=== PATIENT | female | born 1990 | race Caucasian/White ===

== ENCOUNTER 2024-06-08 08:39 | Emergency (ER) | payer OTHER ==
--- NOTE | 2024-06-08 08:47 | ERPHSYRPT ---
- History of Present Illness Time Seen by Provider: 06/08/24 08:47 Source: patient Exam Limitations: no limitations Physician History: 34-year-old female presents to our ED for evaluation of lower abdominal pain. Pain started abruptly last night. Pain described as a pressure sensation that is across her lower abdomen but somewhat more on the right. Pain worse when she stands. Patient has no pain at all when she lays flat. Patient declined pain medication. No trauma no fever. Patient reports that she has had a hysterectomy. However retains her ovaries. Patient denies ever experiencing similar symptoms. Patient otherwise feels well. No fever no nausea no vomiting no vaginal discharge no rash patient otherwise feels well and voices no other complaints or concerns at this time. Portions of this note were created with voice recognition technology. There may be grammatical, spelling, punctuation or sound alike errors Timing/Duration: yesterday Severity: moderate Modifying Factors: Improves With: nothing Associated Symptoms: denies symptoms Allergies/Adverse Reactions: codeine Adverse Reaction (Verified 06/08/24 08:52) - Review of Systems Constitutional: No Symptoms, No Fever, No Chills Eyes: No Symptoms Ears, Nose, & Throat: No Symptoms Respiratory: No Symptoms, No Cough, No Dyspnea Cardiac: No Symptoms, No Chest Pain, No Edema, No Syncope Abdominal/Gastrointestinal: No Symptoms, No Abdominal Pain, No Nausea, No Vomiting, No Diarrhea Genitourinary Symptoms: No Symptoms, No Dysuria Musculoskeletal: No Symptoms, No Back Pain, No Neck Pain Skin: No Symptoms, No Rash Neurological: No Symptoms, No Dizziness, No Focal Weakness, No Sensory Changes Psychological: No Symptoms Endocrine: No Symptoms Hematologic/Lymphatic: No Symptoms Immunological/Allergic: No Symptoms All Other Systems: Reviewed and Negative - Nursing Vital Signs Nursing Vital Signs: Initial Vital Signs Temperature 98.1 F 06/08/24 08:53 Pulse Rate 61 06/08/24 08:53 Respiratory Rate 18 06/08/24 08:53 Blood Pressure 123/82 06/08/24 08:53 O2 Sat by Pulse Oximetry 96 06/08/24 08:53 Pain Scale Pain Intensity 3 - Physical Exam General Appearance: no apparent distress, alert Eye Exam: PERRL/EOMI, eyes nml inspection Ears, Nose, Throat Exam: normal ENT inspection, TMs normal, pharynx normal, moist mucous membranes Neck Exam: normal inspection, full range of motion Respiratory Exam: normal breath sounds, lungs clear, airway intact, No respiratory distress Cardiovascular Exam: regular rate/rhythm, normal heart sounds, normal peripheral pulses Gastrointestinal/Abdomen Exam: soft, normal bowel sounds, No tenderness, No mass Back Exam: normal inspection, normal range of motion, No CVA tenderness, No vertebral tenderness Extremity Exam: normal inspection, normal range of motion, pelvis stable Neurologic Exam: alert, oriented x 3, cooperative, normal mood/affect, sensation nml, No motor deficits Skin Exam: normal color, warm, dry, No rash Lymphatic Exam: No adenopathy SpO2 Interpretation: normal SpO2: 96 O2 Delivery: Room Air - Course Nursing assessment & vital signs reviewed: Yes - CT Exams Abdomen/Pelvis CT Interpretation: Tele-radiologist Report (Periumbilical hernia. Diffuse fecal stasis. Otherwise no acute findings L3-4 disc bulge) Ordered Tests: Active Orders 24 hr Category Date Time Status IV Insertion STAT Care 06/08/24 09:15 Active ABDOMEN AND PELVIS W/0 CONTRAS [CT] Stat Exams 06/08/24 09:15 Completed CBC W DIFF Stat Lab 06/08/24 09:18 Completed CMP Stat Lab 06/08/24 09:18 Completed TROPONIN Q4H Lab 06/08/24 09:18 Completed TROPONIN Q4H Lab 06/08/24 13:15 Ordered TROPONIN Q4H Lab 06/08/24 17:15 Ordered UA W/RFX UR CULTURE Stat Lab 06/08/24 09:19 Completed Medication Summary Generic Name Dose Route Start Last Admin Trade Name Freq PRN Reason Stop Dose Admin Sodium Chloride 1,000 mls @ 100 mls/hr 06/08/24 09:15 06/08/24 09:44 Sodium Chloride 0.9% 1000 Ml IV 07/08/24 09:14 100 mls/hr .Q10H ELO Administration Discontinued Medications Generic Name Dose Route Start Last Admin Trade Name Freq PRN Reason Stop Dose Admin Ceftriaxone Sodium 1 gm in 100 mls @ 200 mls/hr 06/08/24 10:18 06/08/24 10:31 Rocephin 1 Gm / 100 Ml Nacl IV 06/08/24 10:47 200 ml/hr STAT ONE 200 mls/hr Administration Ceftriaxone Sodium Confirm 06/08/24 10:28 Rocephin 1 Gm / 100 Ml Nacl Administered 06/08/24 10:29 Dose 1 gm in 100 mls @ ud IV .STK-MED ONE Lab/Rad Data: Laboratory Result Diagrams 06/08/24 09:18 06/08/24 09:18 Laboratory Results 06/08/24 06/08/24 06/08/24 Range/Units 09:19 09:18 09:18 WBC 7.9 (3.98-10.04) x10^3/uL RBC 4.30 (3.93-5.22) x10^6/uL Hgb 11.9 (11.2-15.7) g/dL Hct 36.7 (34.1-44.9) % MCV 85.3 (79.4-94.8) fL MCH 27.7 (25.6-32.2) pg MCHC 32.4 (32.2-35.5) g/dL RDW 13.1 (11.7-14.4) % Plt Count 274 (182-369) x10^3/uL MPV 10.4 (9.4-12.3) fL Gran % 57.0 (34.0-71.1) % Immature Gran % (Auto) 0.4 (0.001-0.429) % Nucleat RBC Rel Count 0.0 (0.00-0.2) % Eos # (Auto) 0.23 (0.04-0.36) x10^3/uL Immature Gran # (Auto) 0.03 (0.001-0.031) x10^3u/L Absolute Lymphs (auto) 2.59 (1.18-3.74) x10^3/uL Absolute Monos (auto) 0.50 (0.24-0.86) x10^3/uL Absolute Nucleated RBC 0.00 (0.00-0.012) x10^3u/L Lymphocytes % 32.8 (19.3-51.7) % Monocytes % 6.3 (4.7-12.5) % Eosinophils % 2.9 (0.7-5.8) % Basophils % 0.6 (0.1-1.2) % Absolute Granulocytes 4.50 (1.56-6.13) x10^3/uL Basophils # 0.05 (0.01-0.08) x10^3/uL Sodium 140 (135-145) mmol/L Potassium 4.0 (3.5-5.1) mmol/L Chloride 104 (98-107) mmol/L Carbon Dioxide 27 (22-30) mmol/L Anion Gap 13.2 (5-15) MEQ/L BUN 12 (7-17) mg/dL Creatinine 0.67 (0.52-1.04) mg/dL Estimated GFR 116.8 ML/MIN Glucose 95 (74-106) mg/dL Calcium 9.1 (8.4-10.2) mg/dL Total Bilirubin 0.40 (0.2-1.3) mg/dL AST 29 (14-36) U/L ALT 27 (0-35) U/L Alkaline Phosphatase 86 (38-126) U/L Troponin I < 0.012 (0.000-0.033) ng/mL Serum Total Protein 7.1 (6.3-8.2) g/dL Albumin 4.2 (3.5-5.0) g/dL Urine Color Dark Yellow A (Yellow) Urine Appearance Clear (Clear) Urine pH 6.0 (4.6-8.0) Ur Specific [place] 1.010 (1.005-1.030) Urine Protein Negative (Negative) Urine Glucose (UA) Negative (Negative) mg/dL Urine Ketones Negative (Negative) Urine Blood Negative (Negative) Urine Nitrite Positive A (Negative) Urine Bilirubin Negative (Negative) Urine Urobilinogen 1.0 A (0.2) mg/dL Ur Leukocyte Esterase Negative (Negative) U Hyaline Cast (Auto) NONE SEEN (0-2) /LPF Urine Microscopic RBC 0-2 (0-5) /HPF Urine Microscopic WBC 0-2 (0-5) /HPF Ur Epithelial Cells None Seen (None Seen) /HPF Urine Bacteria Rare A (None Seen) /HPF Urine Culture Reflexed NO (NO) - Progress Progress: improved Progress Note: 34-year-old female presents to our ED for evaluation of lower abdominal pain. Workup reveals urinary tract infection. CT abdomen pelvis reveals constipation,'s fatty containing umbilical hernia. L3-L4 disc bulge. Patient declined pain medication. No indication for further workup. Patient received a dose of Rocephin in our ED for the UTI. A prescription for Keflex forwarded to patient's pharmacy. Patient agrees to follow-up with primary care doctor within 48 hours for reevaluation. She voices no other complaints or concerns at this time. Portions of this note were created with voice recognition technology. There may be grammatical, spelling, punctuation or sound alike errors Complexity of problem addressed is moderate acute complicated no critical care time. Complexity of data reviewed and analyzed is moderate. Test ordered chest reviewed results analyzed and correlated clinically with history and physical exam. Risk of complication and or risk of morbidity/mortality of patient management is low. Vital stable. Time spent to discharge patient is approximately 10 minutes. Plan of care established for shared decision making. No social determinants of health present to impede follow-up. Portions of this note were created with voice recognition technology. There may be grammatical, spelling, punctuation or sound alike errors 06/08/24 11:09 Counseled pt/family regarding: lab results, diagnosis, need for follow-up, rad results - Departure Departure Disposition: Home Clinical Impression: Constipation, Urinary tract infection, Fatty umbilical hernia, Bulging disc Condition: Stable Critical Care Time: No Referrals: DOCTOR,NO FAMILY [Primary Care Provider] - Follow up/PCP as directed SARA SANDHU DO [ACTIVE STAFF] - Follow up/PCP as directed Instructions: Urinary tract infections in adults Additional Instructions: Discharge/Care Plan PALMA COBB BALA was seen on 06/08/24 in the Emergency Room. The patient was counseled regarding Diagnosis,Lab results, Imaging studies, need for follow up and when to return to the Emergency Room. Prescriptions given: Discharge Note I have spoken with the patient and/or caregivers. I have explained the patient's condition, diagnosis and treatment plan based on the information available to me at this time. I have answered the patient's and/or caregiver's questions and addressed any concerns. The patient and/or caregivers have as good understanding of the patient's diagnosis, condition and treatment plan as can be expected at this point. The vital signs have been stable. The patient's condition is stable and appropriate for discharge from the emergency department. The patient will pursue further outpatient evaluation with the primary care physician or other designated or consulting physician as outlined in the discharge instructions. The patient and/or caregivers are agreeable to this plan of care and follow-up instructions have been explained in detail. The patient and/or caregivers have received these instruction. The patient/and or caregivers are aware that any significant change in condition or worsening of symptoms should prompt an immediate return to this or the closest emergency department or call 911. Prescriptions: Cephalexin Mh 500 mg [Keflex 500 mg] 500 mg PO TID #21 cap
[2024-06-08 09:00] VITALS: TEMP 98.1
[2024-06-08 09:21] LABS: BASOPHIL % 0.6 % (0.1-1.2); Basophil (Absolute #) 0.05 x10^3/uL (0.01-0.08); Eosinophil % 2.9 % (0.7-5.8); Eosinophil (Absolute #) 0.23 x10^3/uL (0.04-0.36); Hematocrit 36.7 % (34.1-44.9); Hemoglobin 11.9 g/dL (11.2-15.7); IMMATURE GRAN # 0.03 x10^3u/L (0.001-0.031); IMMATURE GRAN % 0.4 % (0.001-0.429); Lymphocyte (Absolute #) 2.59 x10^3/uL (1.18-3.74); Lymphocytes % 32.8 % (19.3-51.7); Mean Cell Volume 85.3 fL (79.4-94.8); Mean Corpuscular Hemoglobin 27.7 pg (25.6-32.2); Mean Corpuscular Hgb Concent. 32.4 g/dL (32.2-35.5); Mean Platelet Volume 10.4 fL (9.4-12.3); Monocytes % 6.3 % (4.7-12.5); Platelet Count 274 x10^3/uL (182-369); Red Cell Distribution Width 13.1 % (11.7-14.4); White Blood Count 7.9 x10^3/uL (3.98-10.04)
[2024-06-08 09:32] LABS: Appearance Clear (Clear); Bacteria Rare /HPF (None Seen); Bilirubin Negative (Negative); Blood Negative (Negative); Epithelial Cells None Seen /HPF (None Seen); Glucose, Urine Negative (Negative); Hyaline Casts NONE SEEN /LPF (0-2); Ketones Negative (Negative); Leukocyte Esterase Negative (Negative); Nitrite Positive (Negative); Protein,Urine Dip Negative (Negative); RBC 0-2 /HPF (0-5); WBC 0-2 /HPF (0-5)
[2024-06-08 09:38] LABS: ALBUMIN 4.2 g/dL (3.5-5.0); ALKALINE PHOSPHATASE 86 U/L (38-126); ANION GAP 13.2 MEQ/L (5-15); BLOOD UREA NITROGEN 12 mg/dL (7-17); CHLORIDE 104 mmol/L (98-107); Calcium 9.1 mg/dL (8.4-10.2); Carbon Dioxide 27 mmol/L (22-30); Creatinine 1 0.67 mg/dL (0.52-1.04); EST GLOMERULAR FILTRATION RATE 116.8 ML/MIN; Glucose 95 mg/dL (74-106); SGOT/AST 29 U/L (14-36); SGPT/ALT 27 U/L (0-35); SODIUM 140 mmol/L (135-145); TROPONIN < 0.012 ng/mL (0.000-0.033); Total Protein 7.1 g/dL (6.3-8.2)
[2024-06-08] MEDS ORDERED: Sodium Chloride 0.9% 1000 ML 1,000 ML ONE (09:42)
[2024-06-08] MEDS: Sodium Chloride 0.9% 1000 ML 1,000 ML IV SCH (09:44)
[2024-06-08] MEDS ORDERED: ROCEPHIN 1 GM / 100 ML NaCl 1 GM/100 ML IVPB IV ONE (10:28)
[2024-06-08] MEDS: ROCEPHIN 1 GM / 100 ML NaCl 1 GM/100 ML IVPB IV ONE (10:31)
--- NOTE | 2024-06-08 10:51 | XRAY ---
Indication: Positional pain. Multiple contiguous axial images obtained through the abdomen and pelvis without contrast. Comparison: None Lung bases clear. Heart is not enlarged. Noncontrasted stomach and bowel loops appear nonobstructed with normal appendix. Mild diffuse fecal debris. Previous hysterectomy. No free fluid/air. Remaining liver, gallbladder, pancreas, spleen, adrenal glands, kidneys, ureters, bladder, and aorta are unremarkable for noncontrast exam. Osseous structures intact with mild L3-L4 broad-based degenerative disc bulge with vacuum disc phenomena. Small fatty umbilical hernia. Impression: Mild diffuse fecal stasis, mild L3-L4 degenerative disc disease, and small fatty umbilical hernia. Remaining CT abdomen/pelvis without contrast exam is negative.
[2024-06-08 11:06] VITALS: BP 141/81; PULSE 75; RESP 11
[2024-06-08 11:11] VITALS: O2SAT 96
== END 2024-06-08 11:34 | disposition home or self-care (01) ==
LOC: ED 08:39
DX: N39.0 Urinary tract infection, site not specified (principal); K59.00 Constipation, unspecified; K42.9 Umbilical hernia without obstruction or gangrene; M51.369 Other intervertebral disc degeneration, lumbar region without mention of lumbar back pain or lower extremity pain; R10.30 Lower abdominal pain, unspecified; Z79.899 Other long term (current) drug therapy
CPT/HCPCS: 36415; 74176; 80053; 81001; 84484; 85025; 96374; 99284; J0696

== ENCOUNTER 2024-06-13 10:20 | Emergency (ER) | payer OTHER ==
[2024-06-13 10:30] VITALS: TEMP 98.4
[2024-06-13] MEDS ORDERED: PROTONIX 40 MG IV IV ONE (11:00)
[2024-06-13] MEDS ORDERED: Pepcid 20 MG VIAL IV ONE (11:00)
[2024-06-13] MEDS ORDERED: Sodium Chloride 0.9% 1000 ML 1,000 ML ONE (11:00)
[2024-06-13] MEDS ORDERED: Zofran 4 MG/2 ML VIAL ONE (11:00)
[2024-06-13] MEDS: PROTONIX 40 MG IV IV ONE (11:01)
[2024-06-13] MEDS: Sodium Chloride 0.9% 1000 ML 1,000 ML IV STA (11:02)
[2024-06-13] MEDS: Zofran 4 MG/2 ML VIAL IV ONE (11:02)
[2024-06-13] MEDS: Pepcid 20 MG VIAL IV ONE (11:02)
[2024-06-13 11:30] LABS: Absolute Neutrophil Ct (ANC) 4.92 x10^3/uL (1.56-6.13); BASOPHIL % 0.6 % (0.1-1.2); Basophil (Absolute #) 0.04 x10^3/uL (0.01-0.08); Eosinophil % 3.6 % (0.7-5.8); Eosinophil (Absolute #) 0.26 x10^3/uL (0.04-0.36); Hemoglobin 12.7 g/dL (11.2-15.7); IMMATURE GRAN # 0.02 x10^3u/L (0.001-0.031); IMMATURE GRAN % 0.3 % (0.001-0.429); Lymphocytes % 19.6 % (19.3-51.7); Mean Cell Volume 83.9 fL (79.4-94.8); Mean Corpuscular Hemoglobin 27.3 pg (25.6-32.2); Mean Corpuscular Hgb Concent. 32.6 g/dL (32.2-35.5); Mean Platelet Volume 10.5 fL (9.4-12.3); Monocyte (Absolute #) 0.49 x10^3/uL (0.24-0.86); Monocytes % 6.9 % (4.7-12.5); Platelet Count 273 x10^3/uL (182-369); Red Blood Count 4.65 x10^6/uL (3.93-5.22); Red Cell Distribution Width 13.2 % (11.7-14.4); White Blood Count 7.1 x10^3/uL (3.98-10.04)
[2024-06-13 11:45] LABS: ALBUMIN 4.2 g/dL (3.5-5.0); ANION GAP 16.6 MEQ/L (5-15); BILIRUBIN,TOTAL 0.5 mg/dL (0.2-1.3); Calcium 9.1 mg/dL (8.4-10.2); Creatinine 1 0.67 mg/dL (0.52-1.04); EST GLOMERULAR FILTRATION RATE 116.8 ML/MIN; Potassium 3.6 mmol/L (3.5-5.1); Total Protein 7.2 g/dL (6.3-8.2)
--- NOTE | 2024-06-13 11:52 | ERPHSYRPT ---
- History of Present Illness Time Seen by Provider: 06/13/24 11:49 Historian: patient, family Exam Limitations: no limitations Patient Subjective Stated Complaint: C/O abdominal pain since 06/07/24. Indicates N/V and diarrhea started on , 06/11/24 Triage Nursing Assessment: Patient ambulated back to ER wearing a mask. She is alert and oriented. No SOB. No cough. Skin is moist; diaphoretic. Warm to touch. ONTIVEROS WNL. Physician History: Patient is 34-year-old female without any significant past medical history was in the emergency room with abdominal pain and urinary frequency and dysuria on June 07, 2024. She was treated for urinary tract infection was started on cephalexin. Patient CAT scan of abdomen and pelvis was negative for obstruction or any other kidney stone or other pathology. Patient blood test were also unremarkable. Patient was started on Keflex and Zofran and was sent home. By next 2 days patient started having a nausea vomiting and diarrhea. Patient still has some burning urination. Patient denies any fever or chills. Patient feels like she is dehydrated because she could not keep anything down. Timing/Duration: day(s) (three days) Activities at Onset: none Abdominal Pain Onset Location: generalized abdomen Pain Radiation: no radiation Modifying Factors: Improves With: nothing Associated Symptoms: diarrhea, loss of appetite, nausea, vomiting Previous symptoms: no prior history Allergies/Adverse Reactions: codeine Adverse Reaction (Verified 06/13/24 10:28) Home Medications: Ondansetron [Ondansetron Odt ] 4 mg PO Q6H PRN 06/13/24 [History] Hx Tetanus, Diphtheria Vaccination/Date Given: Yes Hx Influenza Vaccination/Date Given: Yes Hx Pneumococcal Vaccination/Date Given: No Immunizations Up to Date: Yes Travel Risk - International Travel Have you traveled outside of the country in past 3 weeks: No - Emerging Infectious Disease Are you exhibiting symptoms associated with any current EIDs: Yes Symptoms: Abdominal Pain, Diarrhea, Fever, Vomitting - Review of Systems Constitutional: No Fever, No Chills Eyes: No Symptoms Ears, Nose, & Throat: No Symptoms Respiratory: No Cough, No Dyspnea Cardiac: No Chest Pain, No Edema, No Syncope Abdominal/Gastrointestinal: Abdominal Pain, Nausea, Vomiting, Diarrhea Genitourinary Symptoms: No Dysuria Musculoskeletal: No Back Pain, No Neck Pain Skin: No Rash Neurological: No Dizziness, No Focal Weakness, No Sensory Changes Psychological: No Symptoms Endocrine: No Symptoms All Other Systems: Reviewed and Negative - Past Medical History Pertinent Past Medical History: Yes ENT History: Other Psycho-Social History: Other Other Medical History: PTSD, MENNIERES - Past Surgical History Past Surgical History: Yes Female Surgical History: Hysterectomy - Female History Hx Last Menstrual Period: hysterectomy Hx Now: No - Social History Smoking Status: Never smoker Exposure to second hand smoke: Yes Drug Use: none - Social Determinants of Health Will the patient participate in the screening: Yes Do you worry about a steady place to live?: No Do you have any problems with any of the following?: No known problems In the past 12 months,have you had to go without utilities?: No Transportation Issues: No Has anyone in your support network made you feel unsafe?: No Have you or anyone in your house had to go w/o enough food: No - Nursing Vital Signs Nursing Vital Signs: Initial Vital Signs Temperature 98.4 F 06/13/24 10:21 Pain Scale Pain Intensity 0 - Physical Exam General Appearance: no apparent distress, alert Eye Exam: PERRL/EOMI, eyes nml inspection Ears, Nose, Throat Exam: normal ENT inspection, pharynx normal, moist mucous membranes Neck Exam: normal inspection, non-tender, supple, full range of motion Respiratory Exam: normal breath sounds, lungs clear, No respiratory distress Cardiovascular Exam: regular rate/rhythm, normal heart sounds Gastrointestinal/Abdomen Exam: soft, No tenderness, No mass Back Exam: normal inspection, normal range of motion, No CVA tenderness, No vertebral tenderness Extremity Exam: normal inspection, normal range of motion, pelvis stable Neurologic Exam: alert, oriented x 3, cooperative, normal mood/affect, nml cerebellar function, sensation nml, No motor deficits Skin Exam: normal color, warm, dry SpO2: 95 - Course Nursing assessment & vital signs reviewed: Yes Ordered Tests: Active Orders 24 hr Category Date Time Status AMYLASE Stat Lab 06/13/24 11:30 Completed CBC W DIFF Stat Lab 06/13/24 11:30 Completed CMP Stat Lab 06/13/24 11:30 Completed LIPASE Stat Lab 06/13/24 11:30 Completed PROCALCITONIN Stat Lab 06/13/24 11:30 Completed Medication Summary Discontinued Medications Generic Name Dose Route Start Last Admin Trade Name Freq PRN Reason Stop Dose Admin Famotidine 20 mg 06/13/24 10:39 06/13/24 11:02 Famotidine 20 Mg/1 Vial IV 06/13/24 10:40 20 mg STAT ONE Administration Famotidine Confirm 06/13/24 11:00 Famotidine 20 Mg/1 Vial Administered 06/13/24 11:01 Dose 20 mg IV .STK-MED ONE Sodium Chloride 1,000 mls @ 999 mls/hr 06/13/24 10:39 06/13/24 12:04 Sodium Chloride 0.9% 1000 Ml IV 06/13/24 11:39 Infused .Q1H1M STA Infusion Sodium Chloride Confirm 06/13/24 11:00 Sodium Chloride 0.9% 1000 Ml Administered 06/13/24 11:01 Dose 1,000 mls @ ud .ROUTE .STK-MED ONE Metoclopramide HCl 10 mg 06/13/24 12:07 Metoclopramide Hcl 10 Mg/2 Ml Vial IV 06/13/24 12:08 STAT ONE Ondansetron HCl 4 mg 06/13/24 10:39 06/13/24 11:02 Ondansetron Hcl 4 Mg/2 Ml Vial IV 06/13/24 10:40 4 mg STAT ONE Administration Ondansetron HCl Confirm 06/13/24 11:00 Ondansetron Hcl 4 Mg/2 Ml Vial Administered 06/13/24 11:01 Dose 4 mg .ROUTE .STK-MED ONE Pantoprazole Sodium 40 mg 06/13/24 10:39 06/13/24 11:01 Pantoprazole 40 Mg Vial IV 06/13/24 10:40 40 mg STAT ONE Administration Pantoprazole Sodium Confirm 06/13/24 11:00 Pantoprazole 40 Mg Vial Administered 06/13/24 11:01 Dose 40 mg IV .STK-MED ONE Lab/Rad Data: Laboratory Result Diagrams 06/13/24 11:30 06/13/24 11:30 Laboratory Results 06/13/24 06/13/24 06/13/24 Range/Units 11:30 11:30 11:30 WBC 7.1 (3.98-10.04) x10^3/uL RBC 4.65 (3.93-5.22) x10^6/uL Hgb 12.7 (11.2-15.7) g/dL Hct 39.0 (34.1-44.9) % MCV 83.9 (79.4-94.8) fL MCH 27.3 (25.6-32.2) pg MCHC 32.6 (32.2-35.5) g/dL RDW 13.2 (11.7-14.4) % Plt Count 273 (182-369) x10^3/uL MPV 10.5 (9.4-12.3) fL Gran % 69.0 (34.0-71.1) % Immature Gran % (Auto) 0.3 (0.001-0.429) % Nucleat RBC Rel Count 0.0 (0.00-0.2) % Eos # (Auto) 0.26 (0.04-0.36) x10^3/uL Immature Gran # (Auto) 0.02 (0.001-0.031) x10^3u/L Absolute Lymphs (auto) 1.40 (1.18-3.74) x10^3/uL Absolute Monos (auto) 0.49 (0.24-0.86) x10^3/uL Absolute Nucleated RBC 0.00 (0.00-0.012) x10^3u/L Lymphocytes % 19.6 (19.3-51.7) % Monocytes % 6.9 (4.7-12.5) % Eosinophils % 3.6 (0.7-5.8) % Basophils % 0.6 (0.1-1.2) % Absolute Granulocytes 4.92 (1.56-6.13) x10^3/uL Basophils # 0.04 (0.01-0.08) x10^3/uL Sodium 141 (135-145) mmol/L Potassium 3.6 (3.5-5.1) mmol/L Chloride 106 (98-107) mmol/L Carbon Dioxide 21 L (22-30) mmol/L Anion Gap 16.6 H (5-15) MEQ/L BUN 12 (7-17) mg/dL Creatinine 0.67 (0.52-1.04) mg/dL Estimated GFR 116.8 ML/MIN Glucose 104 (74-106) mg/dL Calcium 9.1 (8.4-10.2) mg/dL Total Bilirubin 0.50 (0.2-1.3) mg/dL AST 32 (14-36) U/L ALT 29 (0-35) U/L Alkaline Phosphatase 87 (38-126) U/L Serum Total Protein 7.2 (6.3-8.2) g/dL Albumin 4.2 (3.5-5.0) g/dL Amylase 46 (30-110) U/L Lipase 82 (23-300) U/L Procalcitonin 0.111 H (0.030-0.080) ng/mL - Progress Progress: improved Counseled pt/family regarding: lab results, diagnosis, need for follow-up Medical Desision Making - Independent Historian Additional History obtained from: Spouse - Diagnostic Testing Diagnostic test were ordered, analyzed, and reviewed by me: Yes Radiological Interpretation: Reviewed by me - Risk of complications Minimal Risk: Minimal risk of morbidity - Departure Departure Disposition: Home Clinical Impression: Acute gastroenteritis, Dehydration, Medication side effect Condition: Stable Critical Care Time: No Referrals: BASIM CARRASCO SEWER DIGGER [Primary Care Provider] - Follow up/PCP as directed Instructions: Dehydration in adults - ED discharge instructions Prescriptions: Promethazine HCl 25 mg [Phenergan 25 mg] 25 mg PO TID #15 tablet
[2024-06-13 12:02] VITALS: BP 114/77; PULSE 79; RESP 21
[2024-06-13 12:14] LABS: Appearance CLEAR (CLEAR); Bilirubin NEGATIVE (NEGATIVE); Glucose NEGATIVE (NEGATIVE); Ketones SMALL-15 (NEGATIVE); Ph 5.5 (5-6); Protein,Urine Dip NEGATIVE (Negative); RBC NEGATIVE Ery/ul (0-5); Specific Gravity >=1.030 (1.005-1.025)
[2024-06-13 12:15] LABS: Nitrite NEGATIVE (NEGATIVE); Urobilinogen 0.2 mg/dL (0-1); WBC 0-2 /HPF (0-5)
[2024-06-13] MEDS ORDERED: Reglan 10 MG/2 ML ONE (12:15)
[2024-06-13 12:16] LABS: Bacteria None Seen /HPF (None Seen); RBC 0-2 /HPF (0-5)
[2024-06-13] MEDS: Reglan 10 MG/2 ML IV ONE (12:16)
[2024-06-13 12:18] LABS: Epithelial Cells Many /HPF (None Seen)
[2024-06-13 12:19] VITALS: O2SAT 95
== END 2024-06-13 12:43 | disposition home or self-care (01) ==
LOC: ED 10:20
DX: K52.1 Toxic gastroenteritis and colitis (principal); T50.905A Adverse effect of unspecified drugs, medicaments and biological substances, initial encounter; E86.0 Dehydration; R11.2 Nausea with vomiting, unspecified; R30.0 Dysuria; Z79.899 Other long term (current) drug therapy
CPT/HCPCS: 36415; 80053; 81015; 82150; 83690; 84145; 85025; 96361; 96374; 96375; 99284; J2405